=== PATIENT | male | born 1955 | race Asian ===

== ENCOUNTER 2018-04-30 17:30 | Emergency (ER) | payer BC ==
[~2018-04-30] VITALS: Ht 170.2 cm; Wt 64.4 kg
[2018-04-30 17:30] VITALS: BP_SYST 152
--- NOTE | 2018-04-30 17:30 | NUR ---
BROUGHT BACK TO BED #2 AND TRIAGED. REPORT GIVEN TO YVES
--- NOTE | 2018-04-30 17:35 | NUR ---
PT STATES THAT WHILE AT WORK, HE WAS MOVING A VERY LARGE WOODEN SLIDING DOOR AND IT FELL ON TOP OF HIM. HE STATES THAT HE FELL ONTO HIS RIGHT SIDE, RIGHT HIP AND SHOULDER PAIN, STATES HE HIT HIS HEAD. DENIES K.O. SMALL ABRASIONS NOTED TO RIGHT ELBOW AND LEFT FOREARM
--- NOTE | 2018-04-30 17:40 | NUR ---
ER Dr. Luna at bedside examining patient.
--- NOTE | 2018-04-30 17:55 | NUR ---
TAKEN TO RADIOLOGY AND RETURNED TO BED #2 SAFELY
[2018-04-30 19:25] VITALS: BP_SYST 152
--- NOTE | 2018-04-30 19:26 | NUR ---
Patient given written and verbal discharge instructions and verbalizes understanding. ER MD discussed with patient the results and treatment provided. Patient in stable condition. ID arm band removed. Rx of Motrin given. Patient educated on pain management and to follow up with PMD. Pain Scale 0/10. Opportunity for questions provided and answered. Medication side effect fact sheet provided.
== END 2018-04-30 19:26 | disposition home or self-care (01) ==
LOC: SED 17:30
DX: S60.511A Abrasion of right hand, initial encounter (principal); S50.311A Abrasion of right elbow, initial encounter; S79.811A Other specified injuries of right hip, initial encounter; W20.8XXA Other cause of strike by thrown, projected or falling object, initial encounter; Y93.89 Activity, other specified; Y92.69 Other specified industrial and construction area as the place of occurrence of the external cause; Y99.8 Other external cause status
CPT/HCPCS: 70450-TC; 71046-TC; 73502; 99284